=== PATIENT | female | born 1975 | race Two or more races ===

== ENCOUNTER 2025-06-05 17:10 | Inpatient (IN) | payer MEDICAID, OTHER ==
[~2025-06-05] VITALS: Ht 165.1 cm; Wt 115.0 kg
--- NOTE | 2025-06-05 17:26 | ED.PDOC ---
HPI Comments 50y F who presents to the ED via EMS for chief complaint of chest pain. Pt states she was smoking cigarette approx 20 minutes prior and states she started to have chest pain and called EMS. EMS upon arrival states her chest pain was by L side of chest, constant, sharp in nature, radiating to the L arm and L shoulder blade, with no associated exacerbating or relieving factors. EMS states pt was given 324 ASA and 0.4 nitro with no change in pain status. Pt upon being asked, states she was smoking due to she has been stressed due to family troubles with pt boyfriend kicking out pt and children and pt having to move in with sister. Pt otherwise has noted history of anxiety and panic attacks. Pt otherwise denies any other symptoms at this time. Chief Complaint: Chest Pain Time Seen by MD: 17:23 Reviewed Notes: Nurses Notes, Medications, Allergies Allergies: Coded Allergies: Penicillins (Verified Allergy, Intermediate, 06/05/25) Information Source: Patient Mode of Arrival: EMS Severity: Moderate Timing: Minutes Duration: Since onset Prehospital treatment: ASA, NTG Location: Chest (L) Radiation: Arm (L) Quality: Sharp, Pressure Onset: At Rest Cardiac Risk Factors: Smoker, HTN PE Risk Factors: None History of: Similar pain in past Modifying Factors: Nothing Associated Signs and Symptoms: None Past Medical History PAST MEDICAL HISTORY: Anxiety, COPD, HTN Past Medical History (Other): DJD Surgical History: Cholecystectomy, ASSISTANT MEDIA PLANNER History: Denies all ASSISTANT MEDIA PLANNER Hx Family History Family History: Reviewed,noncontributory to illness Social History Smoker: Cigarettes Alcohol: Denies ETOH Use Drugs: Marijuana Lives In: Home Constitutional: denies: chills, diaphoresis, fatigue, fever, malaise, sweats, weakness, others EENTM: denies: blurred vision, double vision, ear bleeding, ear discharge, ear drainage, ear pain, ear ringing, eye pain, eye redness, hearing loss, mouth pain, mouth swelling, nasal discharge, nose bleeding, nose congestion, nose pain, photophobia, tearing, throat pain, throat swelling, voice changes, others Respiratory: denies: cough, hemoptysis, orthopnea, SOB at rest, shortness of breath, SOB with excertion, stridor, wheezing, others Cardiovascular: reports: chest pain; denies: dizzy spells, diaphoresis, Dyspnea on exertion, edema, irregular heart beat, left arm pain, lightheadedness, palpitations, PND, syncope, others Gastrointestinal: denies: abdomen distended, abdominal pain, blood streaked bowels, constipated, diarrhea, dysphagia, difficulty swallowing, hematemesis, melena, nausea, poor appetite, poor fluid intake, rectal bleeding, rectal pain, vomiting, others Genitourinary: denies: abnormal vagina bleeding, burning, dyspareunia, dysuria, flank pain, frequency, hematuria, incontinence, pain, , vagina discharge, urgency, others Neurological: denies: dizziness, fainting, headache, left sided numbness, left sided weakness, numbness, paresthesia, pre-existing deficit, right sided numbness, right sided weakness, seizure, speech problems, tingling, tremors, weakness, others Musculoskeletal: denies: back pain, gout, joint pain, joint swelling, muscle pain, muscle stiffness, neck pain, others Integumetry: denies: bruises, change in color, change in hair/nails, dryness, laceration, lesions, lumps, rash, wounds, others Allergic/Immunocompromised: denies: Difficulty Healing, Frequent Infections, Hives, Itching, others Hematologic/Lymphatic: denies: anemia, blood clots, easy bleeding, easy bruising, swollen glands, others Endocrine: denies: excessive hunger, excessive sweating, excessive thirst, excessive urination, flushing, intolerance to cold, intolerance to heat, unexplained weight gain, unexplained weight loss, others Psychiatric: denies: anxiety, bipolar disorder, depression, hopeless, panic disorder, schizophrenia, sleepless, suicidal, others All Other Systems: Reviewed and Negative Physical Exam General Appearance: Moderate Distress, Obese HEENT: Normal ENT Inspection, Pharynx Normal, TMs Normal Neck: Full Range of Motion, Non-Tender, Normal, Normal Inspection Respiratory: Chest Non-Tender, Lungs Clear, No Accessory Muscle Use, No Respiratory Distress, Normal Breath Sounds Cardiovascular: No Edema, No JVD, No Murmur, No Gallop, Normal Peripheral Pulses, Regular Rate/Rhythm Breast Exam: Deferred Gastrointestinal: No Organomegaly, Non Tender, No Pulsatile Mass, Normal Bowel Sounds, Soft Genitalia: Deferred Pelvic: Deferred Rectal: Deferred Extremities: No calf tenderness, Normal capillary refill, Normal inspection, Normal range of motion, Non-tender, No pedal edema Musculoskeletal : Apperance: Normal Neurologic: Alert, burning supervisor II-XII nml as Tested, Motor Weakness, Normal Affect, Normal Mood, No Sensory Deficits Cerebellar Function: Normal Reflexes: Normal Skin: Dry, Normal Color, Warm Lymphatic: No Adenopathy EKG EKG : Pulse Rate (adult): 87 [place]: Normal Cardiac Rhythm: NSR Block: None Hypertrophy: None ST: Normal Was a procedure done? Was a procedure done?: No CP Differential Dx Differential Diagnosis: A-fib, A-Flutter, Angina, Anxiety / Panic Attack, Electrolyte Disorder, PVC's, Sinus Tachycardia Differential Diagnosis: HTN Essential, HTN Accelerated Differential Diagnosis: Chest Wall Pain, Costochondritis X-Ray, Labs, Meds, VS Vital Signs Date Time Temp Pulse Resp B/P (MAP) Pulse Ox O2 Delivery O2 Flow Rate FiO2 06/05/25 18:20 97.7 79 19 156/110 (125) 95 97.7 06/05/25 18:20 79 19 95 Room Air 06/05/25 17:26 87 06/05/25 17:15 87 06/05/25 17:11 98.2 82 24 167/90 98 98.2 Lab Test 06/05/25 18:25 06/05/25 17:25 06/05/25 17:16 Range/Units Troponin I High Sensitivity 4 4 </=34 ng/L White Blood Count 15.0 H 4.4-10.8 10^3/uL Red Blood Count 5.02 4.0-5.20 10^6/uL Hemoglobin 14.1 12.2-16.2 g/dL Hematocrit 41.7 36.0-46.0 % Mean Corpuscular Volume 83.2 80.0-100.0 fL Mean Corpuscular Hemoglobin 28.1 28.0-32.0 pg Mean Corpuscular Hemoglobin Concent 33.7 32.0-36.0 g/dL Red Cell Distribution Width 16.2 H 11.8-14.3 % Platelet Count 321 140-450 10^3/uL Mean Platelet Volume 9.3 6.9-10.8 fL Neutrophils (%) (Auto) 66.2 37.0-80.0 % Lymphocytes (%) (Auto) 25.0 10.0-50.0 % Monocytes (%) (Auto) 6.3 0.0-12.0 % Eosinophils (%) (Auto) 1.3 0.0-7.0 % Basophils (%) (Auto) 1.2 0.0-2.0 % Neutrophils # (Auto) 9.9 H 1.6-8.6 10 ^3/uL Lymphocytes # (Auto) 3.7 0.4-5.4 10 ^3/uL Monocytes # (Auto) 0.9 0-1.3 10 ^3/uL Eosinophils # (Auto) 0.2 0-0.8 10 ^3/uL Basophils # (Auto) 0.2 0-0.2 10 ^3/uL Nucleated Red Blood Cells 0.1 % Sodium Level 141 136-145 mmol/L Potassium Level 3.2 L 3.5-5.1 mmol/L Chloride Level 105 98-107 mmol/L Carbon Dioxide Level 26 20-31 mmol/L Anion Gap 10 5-15 Blood Urea Nitrogen 7 L 9-23 mg/dL Creatinine 0.77 0.550-1.02 mg/dL Glomerular Filtration Rate Calc 95 >90 mL/min BUN/Creatinine Ratio 9.1 L 10.0-20.0 Serum Glucose 107 H 74-106 mg/dL Calcium Level 9.9 8.7-10.4 mg/dL Urine Color Colorless Yellow Urine Clarity Clear Clear Urine pH 6.5 5.0-9.0 Urine Specific [place] 1.004 1.001-1.035 Urine Protein Negative Negative Urine Ketones Negative Negative Urine Blood Negative Negative /uL Urine Nitrite Negative Negative Urine Bilirubin Negative Negative Urine Urobilinogen Normal Negative mg/dL Urine Leukocyte Esterase Negative Negative /uL Urine RBC <1 0 - 4 /hpf Urine Microscopic WBC < 1 0-5 /HPF Urine Squamous Epithelial Cells Few <5 /hpf Urine Bacteria None seen None Seen /hpf Urine Glucose Normal Normal mg/dL Current Medications Medications (Trade) Dose Ordered Sig/Tanisha Route Start Time Stop Time Status Last Admin Lorazepam (Ativan Inj) 1 mg ONCE ONCE IV 06/05/25 17:30 06/05/25 17:54 DC 06/05/25 18:19 CHEST RADIOGRAPH IMPRESSION: Cardiomegaly with pulmonary vascular congestion and bilateral patchy airspace opacities. Small bilateral pleural effusions The patient is being given Lasix 40 mg IV push The patient was given Ativan 1 mg IV push for the anxiety The urine test is negative The patient's CBC shows an elevated white blood cell count of 15 The chemistry panel is within normal limits except for hypokalemia at 3.2 The patient is being given potassium both p.o. and IV The patient's blood pressure had remained somewhat elevated and consistent with accelerated hypertension Images Reviewed?: Images reviewed and evaluated by me Time of 1ST Reevaluation: 20:14 Reevaluation 1ST: Unchanged Patient Education/Counseling: Diagnosis, Treatment, Prognosis Family Education/Counseling: No Family Present SEPSIS Sepsis Screen Date sepsis recognized/suspect: Jun 05, 2025 Time Sepsis recognized/suspect: 1707 Recent Procedure: No On Antibiotic Therapy: No Respiratory Rate >20: Yes Heart Rate >90: No Temp<36 C (96.8 F) or >38.3 C: No SBP <90 or MAP <65 mmHG: No New Acute Mental Status Change: No Is the patient on CPAP, BIPAP,: No Physician Orders Chest Portable (06/05/25 17:16) Heplock Iv (06/05/25 17:16) Director Sales Training (06/05/25 17:16) Blood Pressure (06/05/25 17:16) Pulse Oximetry (06/05/25 17:16) Troponin-I Hs (06/05/25 20:16) Furosemide Injection (Lasix Injection) (06/05/25 20:15) Vital Signs Date Time Temp Pulse Resp B/P (MAP) Pulse Ox O2 Delivery O2 Flow Rate FiO2 06/05/25 18:20 97.7 79 19 156/110 (125) 95 97.7 06/05/25 18:20 79 19 95 Room Air 06/05/25 17:26 87 06/05/25 17:15 87 06/05/25 17:11 98.2 82 24 167/90 98 98.2 Laboratory Tests Test 06/05/25 17:25 White Blood Count 15.0 10^3/uL (4.4-10.8) H Medications Medications Dose Ordered Sig/Tanisha Route Start Time Stop Time Status Last Admin Dose Admin Lorazepam 1 mg ONCE ONCE IV 06/05/25 17:30 06/05/25 17:54 DC 06/05/25 18:19 Departure 1 Departure Time of Disposition: 20:13 Impression: Primary Impression: Acute coronary syndrome Additional Impressions: Acute diastolic heart failure Hypokalemia Disposition: ADMITTED INPATIENT Admit to: Tele Condition: Fair Critical Care Note Critical Care Time?: Yes (35 min-critical care time only) Stability Stability form required: Yes Unstable for transfer: Telemetry monitoring (Telemetry monitoring required), ED Physician Assesment (Clinical assesment) Heart Score Heart Score: Heart Score Response (Comments) Value History Slightly Suspicious 0 EKG Normal 0 Age 45-64 1 Risk Factors 1 or 2 risk factors 1 Troponin Normal limit 0 Total 2 I personally scribed for CARSON MOREL MD ([email or web address]) on 06/05/25 at 17:26. Electronically submitted by Giovanni Duckworth ([employer]). I personally scribed for CARSON MOREL MD ([email or web address]) on 06/05/25 at 18:45. Electronically submitted by Giovanni Duckworth ([employer]). I personally scribed for CARSON MOREL MD ([email or web address]) on 06/05/25 at 19:41. Electronically submitted by Giovanni Duckworth ([employer]). CARSON MOREL MD Jun 05, 2025 17:26
[2025-06-05 17:32] LABS: Hematocrit 41.7 % (36.0-46.0); Hemoglobin 14.1 g/dL (12.2-16.2); Mean Corpuscular Hemoglobin 28.1 pg (28.0-32.0); Mean Corpuscular Volume 83.2 fL (80.0-100.0); Nucleated Red Blood Cells % 0.1 %
[2025-06-05 17:52] LABS: Chloride 105 mmol/L (98-107); Sodium 141 mmol/L (136-145)
[2025-06-05 17:53] LABS: Anion Gap 10 (5-15); Calcium 9.9 mg/dL (8.7-10.4); Carbon Dioxide 26 mmol/L (20-31)
[2025-06-05 17:58] LABS: BUN/Creatinine Ratio 9.1 (10.0-20.0)
[2025-06-05] MEDS: LORazepam 2MG/ML-1ML VIAL IV ONE (18:19)
--- NOTE | 2025-06-05 18:35 | DVH ---
CHEST RADIOGRAPH Indication: cp Technique: XY CHEST PORTABLE COMPARISON: None FINDINGS: The cardiac silhouette is enlarged. The lungs demonstrate bilateral patchy airspace opacities. The pu lmonary vasculature is prominent. Small bilateral pleural effusions. There is no pneumothorax. IMPRESSION: Cardiomegaly with pulmonary vascular congestion and bilateral patchy airspace opacities. Small bilateral pleural effusions
[2025-06-05 18:39] LABS: Blood Urea Nitrogen 7 mg/dL (9-23); Glucose 107 mg/dL (74-106); Potassium 3.2 mmol/L (3.5-5.1)
--- NOTE | 2025-06-05 19:01 | ECG ---
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
[2025-06-05 19:02] LABS: Urine Protein, UAD Negative (Negative)
[2025-06-05] MEDS: POTASSIUM CHL 20 Meq TABLET PO ONE (20:46)
[2025-06-05] MEDS: FUROSEMIDE 40 MG/4 ML VIAL IV ONE (20:52)
[2025-06-05 21:01] VITALS: RESP 20; O2SAT 94
[2025-06-05] MEDS ORDERED: NITROGLYCERIN 0.4 MG SL TAB SL PRN (21:45)
[2025-06-05] MEDS ORDERED: ONDANSETRON HCL 4 MG/2 ML VIAL IV PRN (21:45)
[2025-06-05] MEDS: MORPHINE SULFATE INJ 2 MG/ml SYRG IV PRN (23:18)
--- NOTE | 2025-06-06 00:42 | DVHHPRES ---
History of Present Illness Resident Creating Document: ABDOULAYE MARISCAL RESIDENT History of Present Illness 50-year-old female presents the ER complaining of chest pain, rating 9/10, sharp in nature, gradual onset, radiating to back and between the shoulder blades, associated with palpitations and dizziness. The patient has a history of panic attack. She denies any fever, nausea, vomiting, diaphoresis or shortness of breath. Past medical history: Hypertension, COPD, spinal stenosis, degenerative disc disease, arthritis, panic attacks Past surgical history: D and C, 2 sections, cholecystectomy Home medications: Losartan, amlodipine, sertraline, beta-blockers, ibuprofen, Robaxin, albuterol inhaler, hydroxyzine, breathing treatments Allergies: Family history: Noncontributory Code status: Full code PCP: AMANDA Carcamo Review of Systems Cardiovascular: Chest Pain Neurological: Other Allergies: Coded Allergies: Penicillins (Verified Allergy, Intermediate, 06/05/25) Medications Current Medications Medications Dose Ordered Sig/Tanisha Route Start Time Stop Time Status Last Admin Dose Admin Ondansetron HCl 4 mg Q4HP PRN IV 06/05/25 21:45 Nitroglycerin 0.4 mg Q5MINP PRN SL 06/05/25 21:45 Morphine Sulfate 2 mg Q30M PRN IV 06/05/25 21:45 06/05/25 23:18 2 MG Exam Vital Signs Vital Signs Date Time Temp Pulse Resp B/P (MAP) Pulse Ox O2 Delivery O2 Flow Rate FiO2 06/05/25 23:18 64 19 158/92 06/05/25 23:14 98 06/05/25 21:01 Room Air* 0 21 06/05/25 18:20 97.7 97.7 Exam Pt is lying on bed General Appearance: Obesity, Alert, Oriented X3, Cooperative, Mild distress HEENT: Atraumatic, Mucous membranes moist/pink Respiratory: Clear to auscultation, Normal air movement, No added sounds, no chest wall tenderness noted Cardiovascular: Regular rate, Normal S1, Normal S2, No murmurs Abdominal/ : Active bowel sounds, Soft, no distention, no tenderness Extremities: No edema, Normal pulses, No tenderness/swelling Skin: No Significant rash, except past surgical scars Neuro: Normal speech, sensorimotor deficits none Psych/Mental Status: Mental status NL, Mood NL Nurse was there as clinical tech during examination Labs/Xrays Labs Test 06/05/25 18:25 06/05/25 17:25 06/05/25 17:16 Range/Units Troponin I High Sensitivity 4 </=34 ng/L White Blood Count 15.0 H 4.4-10.8 10^3/uL Red Blood Count 5.02 4.0-5.20 10^6/uL Hemoglobin 14.1 12.2-16.2 g/dL Hematocrit 41.7 36.0-46.0 % Mean Corpuscular Volume 83.2 80.0-100.0 fL Mean Corpuscular Hemoglobin 28.1 28.0-32.0 pg Mean Corpuscular Hemoglobin Concent 33.7 32.0-36.0 g/dL Red Cell Distribution Width 16.2 H 11.8-14.3 % Platelet Count 321 140-450 10^3/uL Mean Platelet Volume 9.3 6.9-10.8 fL Neutrophils (%) (Auto) 66.2 37.0-80.0 % Lymphocytes (%) (Auto) 25.0 10.0-50.0 % Monocytes (%) (Auto) 6.3 0.0-12.0 % Eosinophils (%) (Auto) 1.3 0.0-7.0 % Basophils (%) (Auto) 1.2 0.0-2.0 % Neutrophils # (Auto) 9.9 H 1.6-8.6 10 ^3/uL Lymphocytes # (Auto) 3.7 0.4-5.4 10 ^3/uL Monocytes # (Auto) 0.9 0-1.3 10 ^3/uL Eosinophils # (Auto) 0.2 0-0.8 10 ^3/uL Basophils # (Auto) 0.2 0-0.2 10 ^3/uL Nucleated Red Blood Cells 0.1 % Sodium Level 141 136-145 mmol/L Potassium Level 3.2 L 3.5-5.1 mmol/L Chloride Level 105 98-107 mmol/L Carbon Dioxide Level 26 20-31 mmol/L Anion Gap 10 5-15 Blood Urea Nitrogen 7 L 9-23 mg/dL Creatinine 0.77 0.550-1.02 mg/dL Glomerular Filtration Rate Calc 95 >90 mL/min BUN/Creatinine Ratio 9.1 L 10.0-20.0 Serum Glucose 107 H 74-106 mg/dL Calcium Level 9.9 8.7-10.4 mg/dL Urine Color Colorless Yellow Urine Clarity Clear Clear Urine pH 6.5 5.0-9.0 Urine Specific [place] 1.004 1.001-1.035 Urine Protein Negative Negative Urine Ketones Negative Negative Urine Blood Negative Negative /uL Urine Nitrite Negative Negative Urine Bilirubin Negative Negative Urine Urobilinogen Normal Negative mg/dL Urine Leukocyte Esterase Negative Negative /uL Urine RBC <1 0 - 4 /hpf Urine Microscopic WBC < 1 0-5 /HPF Urine Squamous Epithelial Cells Few <5 /hpf Urine Bacteria None seen None Seen /hpf Urine Glucose Normal Normal mg/dL SEPSIS Sepsis Screen Date sepsis recognized/suspect: Jun 05, 2025 Time Sepsis recognized/suspect: 1707 Recent Procedure: No On Antibiotic Therapy: No Respiratory Rate >20: Yes Heart Rate >90: No Temp<36 C (96.8 F) or >38.3 C: No SBP <90 or MAP <65 mmHG: No New Acute Mental Status Change: No Is the patient on CPAP, BIPAP,: No Physician Orders Chest Portable (06/05/25 17:16) Heplock Iv (06/05/25 17:16) Belting And Webbing Inspector (06/05/25 17:16) Blood Pressure (06/05/25 17:16) Pulse Oximetry (06/05/25 17:16) Admit (06/05/25 21:39) Allergies (06/05/25 21:39) Ondansetron Hcl (Zofran) (06/05/25 21:45) Complete Blood Count (06/06/25 04:00) Comprehensive Metabolic Panel (06/06/25 04:00) Cardiac Diet-2gna,Lofat,Lochol (06/06/25 Breakfast) Nitroglycerin Sublingual (Ntrostat Subli (06/05/25 21:45) Morphine Sulfate Injection (06/05/25 21:45) Oxygen By Nasal Cannula (06/05/25 21:39) Stat Ekg For Chest Pain (06/05/25 21:39) Notify Of Changes From Base (06/05/25 21:39) Ecdis N Navigation Operator For 24 Hours (06/05/25 21:39) Emergency Dysrhythmia Protocol (06/05/25 21:39) Rhythm Strips Once Every Shift (06/05/25 21:39) Vital Signs Date Time Temp Pulse Resp B/P (MAP) Pulse Ox O2 Delivery O2 Flow Rate FiO2 06/05/25 23:18 64 19 158/92 06/05/25 23:14 64 18 158/92 (114) 98 06/05/25 22:40 62 06/05/25 21:01 20 94 Room Air* 0 21 06/05/25 20:52 159/92 06/05/25 20:30 70 19 159/92 (114) 95 06/05/25 18:20 97.7 79 19 156/110 (125) 95 97.7 06/05/25 18:20 79 19 95 Room Air 06/05/25 17:26 87 06/05/25 17:15 87 06/05/25 17:11 98.2 82 24 167/90 98 98.2 Laboratory Tests Test 06/05/25 17:25 White Blood Count 15.0 10^3/uL (4.4-10.8) H Medications Medications Dose Ordered Sig/Tanisha Route Start Time Stop Time Status Last Admin Dose Admin Furosemide 40 mg ONCE ONCE IV 06/05/25 20:15 06/05/25 20:21 DC 06/05/25 20:52 40 MG Lorazepam 1 mg ONCE ONCE IV 06/05/25 17:30 06/05/25 17:54 DC 06/05/25 18:19 1 MG Morphine Sulfate 2 mg Q30M PRN IV 06/05/25 21:45 06/05/25 23:18 2 MG Potassium Chloride 20 meq ONCE ONCE PO 06/05/25 20:15 06/05/25 20:21 DC 06/05/25 20:46 20 MEQ Assessment/Plan Assessment/Plan Chest pain rule out ACS -EKG: No ischemic changes, old infarct -troponin x3: Negative -morphine -nitroglycerin Chest pain due to Gram-positive or Gram-negative pneumonia Chest x-ray: Cardiomegaly with pulmonary vascular congestion and bilateral patchy airspace opacities, small bilateral pleural effusions -ceftriaxone and azithromycin Hypertension Continue home meds losartan, amlodipine, beta blockers COPD not on exacerbation Breathing treatments if necessary Back pain due to spinal stenosis, degenerative disc disease, arthritis -[place] 5 mg p.r.n. GI prophylaxis: Not indicated DVT prophylaxis: Not indicated Diet: Cardiac Goals of care discussed with the patient for more than 27 minutes: Full code status Case discussed with , patient and RN Plan discussed with: Patient, Other (RN) My Orders Orders - ABDOULAYE MARISCAL RESIDENT Procedure Category Date Status Time Admit ADMIT 06/05/25 Transmitted 21:39 Allergies MELITA 06/05/25 In Process 21:39 Ondansetron Hcl PHA 06/05/25 In Process (Zofran) 21:45 Complete Blood Count LAB 06/06/25 Logged 04:00 Comprehensive LAB 06/06/25 Logged Metabolic Panel 04:00 Cardiac DIET 06/06/25 Transmitted Diet-2gna,Lofat,Lochol Breakfast Nitroglycerin PHA 06/05/25 In Process Sublingual (Ntrostat 21:45 Morphine Sulfate PHA 06/05/25 In Process Injection 21:45 Oxygen By Nasal RT 06/05/25 Transmitted Cannula 21:39 Stat Ekg For Chest [facility] 06/05/25 In Process Pain 21:39 Notify Md Of Changes [facility] 06/05/25 In Process From Base 21:39 Ecdis N Navigation Operator For [facility] 06/05/25 In Process 24 Hours 21:39 Emergency Dysrhythmia [facility] 06/05/25 In Process Protocol 21:39 Rhythm Strips Once [facility] 06/05/25 In Process Every Shift 21:39 Common Visit Codes: 68965-ECIFOAI INP/OBS CARE (HIGH) Secondary Visit Codes: 68322-[id number] CARE PLAN 30 MINUTES ABDOULAYE MARISCAL RESIDENT Jun 06, 2025 00:42
[2025-06-06] MEDS: cefTRIAXone 1GM/50ML D5W 50 ML IV ONE (02:28)
[2025-06-06 02:34] VITALS: BP 171/96; PULSE 64; RESP 18; TEMP 98.1; O2SAT 99
[2025-06-06] MEDS: HYDROcodone-ACET 5/325MG TAB PO PRN (02:38)
[2025-06-06] MEDS: AZITHROMYCIN 500MG/ 250ML 250 ML IV ONE (03:34)
[2025-06-06 05:00] VITALS: BP 163/103; PULSE 66; RESP 18; TEMP 98; O2SAT 95
[2025-06-06 05:47] LABS: Hematocrit 39.7 % (36.0-46.0); Hemoglobin 13.6 g/dL (12.2-16.2); Mean Corpuscular Hemoglobin 28.1 pg (28.0-32.0); Mean Corpuscular Volume 82.1 fL (80.0-100.0); Nucleated Red Blood Cells % 0.0 %
[2025-06-06 06:01] LABS: Alanine Aminotransferase 33 U/L (7-40); Anion Gap 11 (5-15); BUN/Creatinine Ratio 10.3 (10.0-20.0); Calcium 9.5 mg/dL (8.7-10.4); Carbon Dioxide 26 mmol/L (20-31); Chloride 103 mmol/L (98-107); Sodium 140 mmol/L (136-145); Total Protein 7.2 g/dL (5.7-8.2)
[2025-06-06 06:02] LABS: Albumin 4.6 g/dL (3.2-4.8); Bilirubin, Total 0.3 mg/dL (0.2-1.0)
[2025-06-06 06:15] LABS: Alkaline Phosphatase 123 U/L (46-116); Blood Urea Nitrogen 8 mg/dL (9-23); Glucose 166 mg/dL (74-106); Potassium 2.6 mmol/L (3.5-5.1)
[2025-06-06] MEDS ORDERED: IBU600T PO (06:46)
[2025-06-06] MEDS ORDERED: LOSA-534 PO (06:46)
[2025-06-06] MEDS ORDERED: ACLI400A5 IN (06:46)
[2025-06-06] MEDS ORDERED: METO25CA PO (06:46)
[2025-06-06] MEDS ORDERED: METH-1182 PO (06:46)
[2025-06-06] MEDS ORDERED: AML5T PO (06:46)
[2025-06-06] MEDS ORDERED: SERT100T PO (06:46)
[2025-06-06] MEDS: POTASSIUM CHL 20MEQ/100ML 100 ML IV ONE (07:24)
[2025-06-06 09:00] VITALS: BP 156/94; PULSE 66; RESP 17; TEMP 98.8; O2SAT 97
--- NOTE | 2025-06-06 09:09 | DVHPNRES ---
Progress Note Date Seen: Jun 06, 2025 Resident Creating Document: ELADIA BARRIOS RESIDENT Medical Necessity Reason Pt with a Central, PICC or Fol: No Subjective Review of Systems Arianna Del Real is a 50-year-old female with past medical history of COPD, hypertension, MVP, anxiety, PTSD, degenerative disc disease, depression, migraine, presented to the ER with chief complaint of chest pain. The pain started suddenly when she was smoking a cigarette, 10/10, sharp burning, urged do visit to ER. She reported that the pain aggravate and lifting head, lying on the left side, radiates to the back and shoulder blades. Associated with cough, productive phlegm. She also complained of difficulty breathing which worsened since yesterday. Reported no sick contacts, fever, chills, nausea, vomiting, abdominal pain, burning micturition. Vitals show high blood pressure and tachypnea on admission. Previous hospitalization: Dec 2024 [facility] for pain due to spinal stenosis Past medical history: COPD, hypertension, MVP, anxiety, PTSD, degenerative disc disease, depression, migraine Past surgical history: Cholecystectomy, 2 sections Social history: Smoker since the age of 15 years, 10 per day. Reported CBD gummy use, before start of chest pain. Nonalcoholic, no recreational drug use after high school. ROS: Constitutional: Denies weight loss, fever and chills. HEENT: Denies changes in vision and hearing. Respiratory: Difficulty breathing, chest pain and cough Cardiovascular: Chest pain. Denies palpitations GI: Denies abdominal pain, nausea, vomiting and diarrhea. : Denies dysuria and urinary frequency. Musculoskeletal: Pain in the shoulder blades, cervical spine and left thoracic area Skin: Skin tag on left side and back. Denies rash and pruritus. Neurological: Denies dizziness, headache, vision or hearing problems She was seen at bedside today. Continues to complain of excruciating pain in the chest, radiating to the back. She is in acute distress. Her vitals have stabilized now. Her labs show increased WBC count, ALP. Objective vital signs Vital Sign Date Time Temp Pulse Resp B/P (MAP) Pulse Ox O2 Delivery O2 Flow Rate FiO2 06/06/25 05:00 98.0 66 18 163/103 (123) 95 98.0 06/06/25 02:53 Room Air* 0 21 Total Intake and Output 7/31/25 7/31/25 8/1/25 15:00 23:00 07:00 Intake Total 650 ml Balance 650 ml medications Current Medications Medications Dose Ordered Sig/Tanisha Route Start Time Stop Time Status Last Admin Dose Admin Ondansetron HCl 4 mg Q4HP PRN IV 06/05/25 21:45 Nitroglycerin 0.4 mg Q5MINP PRN SL 06/05/25 21:45 Morphine Sulfate 2 mg Q30M PRN IV 06/05/25 21:45 06/05/25 23:18 2 MG Acetaminophen/ Hydrocodone Bitart 1 tab Q6HPRN PRN PO 06/06/25 01:00 06/06/25 02:38 1 TAB Ceftriaxone Sodium 50 ml @ 100 mls/hr DAILY@09 IV 06/07/25 09:00 Azithromycin 250 ml @ 125 mls/hr DAILY IV 06/07/25 10:00 Examination General: Patient alert and oriented in person, place and time. Patient following commands. In acute distress due to pain. HEENT: Bilateral draining sinuses in the neck. Hump back. Normocephalic, atraumatic, moist mucous membranes. Lhermitte sign negative Respiratory/pulmonary: Bilateral lung wheezes. Cardiovascular: Distant heart sounds. Abdomen: Abdomen nondistended, there is no pain to palpation in any of the abdominal quadrants, no palpable masses. Extremities: There is no peripheral edema present at the lower extremities. Peripheral Pulses: 3+ Radial (R). 3+ Radial (L). 3+ Dorsalis pedis (R). 3+ Dorsalis pedis(L) Skin: No rashes or pruritus, there is no sacral edema present at this time. Musculoskeletal: Tenderness in cervical spinal area, left upper thoracic region posteriorly Neurological: Intact cranial nerves with no focal neurologic deficits laboratory and microbiology Laboratory Tests 06/06/25 05:08 Test 06/06/25 05:08 Range/Units Serum Glucose 166 H 74-106 mg/dL Labs and/or images reviewed: Labs reviewed by me, Image(s) reviewed by me Problem List/Assessment/Plan Problem List/Assessment/Plan Acute exacerbation of COPD, due to pneumonia, Gram-negative Gram-positive, possible Sepsis with leukocytosis due to pneumonia CXR revealed enlarged cardiac silhouette with pulmonary vascular congestion and bilateral patchy airspace opacities and small bilateral pleural effusions Influenza and COVID-19 ordered Started on azithromycin and ceftriaxone IV Acute chest pain, rule out ACS Started on telemetry. Pain management with morphine, NTG, Rena Lara Troponin WNL Hypokalemia IV potassium supplementation administered Continue monitoring and managing Elevated liver enzymes Elevated ALT and AST Essential hypertension Continue home medication, amlodipine 5 mg daily ?History of depression History of anxiety disorder No suicidal ideation/plan History of Lumbar spinal stenosis Continue pain management Morbid obesity with BMI 42.2 Advised lifestyle modification. Tobacco use disorder Counseled on smoking cessation for 16 minutes DIET: Cardiac DVT PROPHYLAXIS: Lovenox GI PROPHYLAXIS: Protonix CODE STATUS: Goals of care discussed with patient at bedside for20 minutes. Full code DISPOSITION: Med/surge Patient's status and plan discussed with the patient. Case discussed with Dr. Alex. PCP Aleta Carcamo Plan discussed with: Patient, Other (Nurse) Addendum Addendum Addendum I was physically present for the simpson portions of the service provided to patient by THE RESIDENT. I have reviewed the documentation, discussed the case with resident and agree with the resident's documentation except as noted. Also the patient's clinical case was discussed with the patient's nurse. This medical document was created using an electronic medical record system with computerized dictation system. Although this document has been carefully reviewed, there might still be some phonetic and typographical errors. These areas are purely typographical due to imperfections of the software programs, and do not reflect any compromise in the patient's medical care. Late signature. Date of Service: Jun 06, 2025 Billing Provider: CRISSY ALEX MD Common Visit Codes: 88976-[id number] INP/OBS CARE(HIGH) Secondary Visit Codes: 42261-IFSMH CHNG SMOKING >10MIN (16 minutes), 07506- ADVANCED CARE PLAN 30 MINUTES (20 minutes) ELADIA BARRIOS RESIDENT Jun 06, 2025 09:09 CRISSY ALEX MD Jun 08, 2025 04:38
[2025-06-06] MEDS: PANTOPRAZOLE 40 MG/10 ML VIAL INJ IV ONE (10:15)
[2025-06-06] MEDS ORDERED: HYDRX10T PO (10:35)
[2025-06-06] MEDS ORDERED: SERT-160 PO (10:35)
[2025-06-06] MEDS: LIDOCAINE 5% TOPICAL PATCH TOP ONE (10:41)
[2025-06-06] MEDS: MORPHINE SULFATE INJ 2 MG/ml SYRG IV ONE (10:45)
[2025-06-06] MEDS: POTASSIUM CHLORIDE 40 MEQ, LIDOCAINE 1% (LOCAL ANESTH.) 4 ML in SODIUM CHL 0.9% 250 ML IV ONE (10:46)
[2025-06-06] MEDS ORDERED: SUCRALFATE 1 GM/10 ML ORAL SUSP GT ONE (12:00)
[2025-06-06] MEDS ORDERED: KETOROLAC TROMETH 30 MG/ML 1ML VIAL IV ONE (12:30)
[2025-06-06] MEDS ORDERED: SERTRALINE HCL 50 MG TAB PO ONE (12:45)
[2025-06-06 13:00] VITALS: BP 164/102; PULSE 62; RESP 17; TEMP 98.6; O2SAT 97
[2025-06-06] MEDS ORDERED: IPRATROPIUM BROM 0.5 MG/2.5ML INH SOL NEB SCH ×2 (13:00→18:00)
[2025-06-06] MEDS ORDERED: ALBUTEROL SULF 2.5 MG/0.5ML(0.5%) NEB SOLN NEB SCH ×2 (13:00→18:00)
[2025-06-06 13:52] VITALS: BP 159/94; PULSE 65; RESP 18; TEMP 98; O2SAT 95
[2025-06-06 14:01] LABS: Triglycerides 141 mg/dL (< 150)
[2025-06-06 14:03] LABS: HDL Cholesterol 46 mg/dL (40-59)
[2025-06-06 14:04] LABS: Cholesterol 205 mg/dL (< 200)
[2025-06-06 14:06] LABS: Amphetamine Screen, Urine Neg (NEGATIVE)
[2025-06-06 14:07] LABS: Barbiturate Scree,Urine Neg (NEGATIVE); Benzodiazephine Screen, Urine Neg (NEGATIVE); Cannabinoid Screen, Urine Pos (NEGATIVE); Cocaine Screen, Urine Neg (NEGATIVE); Opiate Scree,Urine Neg (NEGATIVE)
[2025-06-06 14:08] LABS: Phencyclidine Screen, Urine Neg (NEGATIVE)
[2025-06-06 15:08] LABS: COVID19 ANTIGEN SOFIA FIA NEGATIVE (NEGATIVE)
--- NOTE | 2025-06-06 15:17 | DVHDSRES ---
Discharge Summary Date of Admission Resident Creating Document: ELADIA BARRIOS RESIDENT Jun 05, 2025 at 21:39 Date of Discharge: Jun 06, 2025 Admitting Diagnosis Acute exacerbation of COPD, due to pneumonia, Gram-negative Gram-positive, possible Wounds: No large wounds Labs/Diagnostic Data: Laboratory Results Test 06/06/25 11:30 06/06/25 05:09 06/06/25 05:08 06/05/25 18:25 Influenza Type A Antigen Negative (Negative) Influenza Type B Antigen Negative (Negative) SARS-CoV-2 Antigen (Rapid) Negative (NEGATIVE) Erythrocyte Sedimentation Rate 28 mm/hr (0-20) C-Reactive Protein High Sensitivity 2.26 mg/dL (<1.0) Triglycerides Level 141 mg/dL (< 150) Cholesterol Level 205 mg/dL (< 200) LDL Cholesterol 152 mg/dL (< 100) HDL Cholesterol 46 mg/dL (40-59) Thyroid Stimulating Hormone (TSH) 1.87 uIU/mL (0.55-4.78) Beta HCG, Quantitative 1.5 mIU/mL (1.5-4.2) Plasma/Serum Blood Alcohol < 3.0 mg/dL (<10) White Blood Count 12.3 10^3/uL (4.4-10.8) Red Blood Count 4.84 10^6/uL (4.0-5.20) Hemoglobin 13.6 g/dL (12.2-16.2) Hematocrit 39.7 % (36.0-46.0) Mean Corpuscular Volume 82.1 fL (80.0-100.0) Mean Corpuscular Hemoglobin 28.1 pg (28.0-32.0) Mean Corpuscular Hemoglobin Concent 34.2 g/dL (32.0-36.0) Red Cell Distribution Width 15.8 % (11.8-14.3) Platelet Count 310 10^3/uL (140-450) Mean Platelet Volume 9.6 fL (6.9-10.8) Neutrophils (%) (Auto) 72.2 % (37.0-80.0) Lymphocytes (%) (Auto) 21.0 % (10.0-50.0) Monocytes (%) (Auto) 4.5 % (0.0-12.0) Eosinophils (%) (Auto) 1.9 % (0.0-7.0) Basophils (%) (Auto) 0.4 % (0.0-2.0) Neutrophils # (Auto) 8.9 10 ^3/uL (1.6-8.6) Lymphocytes # (Auto) 2.6 10 ^3/uL (0.4-5.4) Monocytes # (Auto) 0.5 10 ^3/uL (0-1.3) Eosinophils # (Auto) 0.2 10 ^3/uL (0-0.8) Basophils # (Auto) 0.1 10 ^3/uL (0-0.2) Nucleated Red Blood Cells 0.0 % Sodium Level 140 mmol/L (136-145) Potassium Level 2.6 mmol/L (3.5-5.1) Chloride Level 103 mmol/L (98-107) Carbon Dioxide Level 26 mmol/L (20-31) Anion Gap 11 (5-15) Blood Urea Nitrogen 8 mg/dL (9-23) Creatinine 0.78 mg/dL (0.550-1.02) Glomerular Filtration Rate Calc 94 mL/min (>90) BUN/Creatinine Ratio 10.3 (10.0-20.0) Serum Glucose 166 mg/dL (74-106) Hemoglobin A1c 5.8 % A1C (<5.7) Calcium Level 9.5 mg/dL (8.7-10.4) Total Bilirubin 0.3 mg/dL (0.2-1.0) Aspartate Amino Transferase (AST) 48 U/L (13-40) Alanine Aminotransferase (ALT) 33 U/L (7-40) Alkaline Phosphatase 123 U/L (46-116) Total Protein 7.2 g/dL (5.7-8.2) Albumin 4.6 g/dL (3.2-4.8) Troponin I High Sensitivity 4 ng/L (</=34) Test 06/05/25 17:16 Urine Color Colorless (Yellow) Urine Clarity Clear (Clear) Urine pH 6.5 (5.0-9.0) Urine Specific [place] 1.004 (1.001-1.035) Urine Protein Negative (Negative) Urine Ketones Negative (Negative) Urine Blood Negative /uL (Negative) Urine Nitrite Negative (Negative) Urine Bilirubin Negative (Negative) Urine Urobilinogen Normal mg/dL (Negative) Urine Leukocyte Esterase Negative /uL (Negative) Urine RBC <1 /hpf (0 - 4) Urine Microscopic WBC < 1 /HPF (0-5) Urine Squamous Epithelial Cells Few /hpf (<5) Urine Bacteria None seen /hpf (None Seen) Urine Glucose Normal mg/dL (Normal) Urine Opiates Screen Neg (NEGATIVE) Urine Fentanyl Screen Neg (NEGATIVE) Urine Barbiturates Screen Neg (NEGATIVE) Urine Phencyclidine Screen Neg (NEGATIVE) Urine Amphetamines Screen Neg (NEGATIVE) Urine Benzodiazepines Screen Neg (NEGATIVE) Urine Cocaine Screen Neg (NEGATIVE) Urine Cannabinoids Screen Pos (NEGATIVE) Other Laboratory Tests 06/06/25 05:08 Brief Hx & Hospital Course: Brief history: Arianna Del Real is a 50-year-old female with past medical history of COPD, hypertension, MVP, anxiety, PTSD, degenerative disc disease, depression, migraine, presented to the ER with chief complaint of chest pain. The pain started suddenly when she was smoking a cigarette, 10/10, sharp burning, urged do visit to ER. She reported that the pain aggravate and lifting head, lying on the left side, radiates to the back and shoulder blades. Associated with cough, productive phlegm. She also complained of difficulty breathing which worsened since yesterday. Reported no sick contacts, fever, chills, nausea, vomiting, abdominal pain, burning micturition. She reports smoking since the age of 15 years, 10 per day. Reported CBD gummy use, before start of chest pain. Nonalcoholic, no recreational drug use after high school. Hospital course: Initial labs show troponin levels WNL, leukocytosis, increased ALP, cholesterol and LDL, ESR and CRP. Toxicology positive for cannabinoids, alcohol. Started on telemetry, pain management. CXR revealed enlarged cardiac silhouette with pulmonary vascular congestion and bilateral patchy airspace opacities and small bilateral pleural effusions, started on IV azithromycin and ceftriaxone. Patient went AMA before further medical evaluation or management could be completed. Physical exam as documented in the progress note on 06/06/2025. Discharge diagnosis: Acute exacerbation of COPD, due to pneumonia, Gram-negative Gram-positive, possible Pneumonia, likely due to Gram-positive Gram-negative bacteria/viral Sepsis with leukocytosis due to pneumonia Acute chest pain, possible cardiac, possible ACS Hypokalemia Elevated liver enzymes Elevated ALT and AST Essential hypertension History of depression History of anxiety disorder History of Lumbar spinal stenosis Morbid obesity with BMI 42.2 Tobacco use disorder Discussed with Dr. Alex Operations or Procedures CHEST RADIOGRAPH Indication: cp Technique: XY CHEST PORTABLE COMPARISON: None FINDINGS: The cardiac silhouette is enlarged. The lungs demonstrate bilateral patchy airspace opacities. The pulmonary vasculature is prominent. Small bilateral pleural effusions. There is no pneumothorax. IMPRESSION: Cardiomegaly with pulmonary vascular congestion and bilateral patchy airspace opacities. Small bilateral pleural effusions Condition at Discharge: Undetermined (Left AMA) Final Diagnosis/Problems List Acute exacerbation of COPD, due to pneumonia, Gram-negative Gram-positive, possible Sepsis with leukocytosis due to pneumonia Acute chest pain, rule out ACS Hypokalemia Elevated liver enzymes Elevated ALT and AST Essential hypertension History of depression History of anxiety disorder History of Lumbar spinal stenosis Morbid obesity with BMI 42.2 Tobacco use disorder Discharge Disposition: AMA Discharge Instruct/Medications Diet: See Comment Diet comment: Left AMA Activity: See Comment Activity comment: Left AMA Follow Up/Referral: Left AMA Medications: Left AMA Scheduled Amlodipine Besylate (Norvasc Tablet), 1 TAB PO DAILY, (Reported) Losartan Potassium (Losartan Potassium), 1 TAB PO DAILY, (Reported) Sertraline Hcl (Zoloft), 1 TAB PO DAILY, (Reported) Sertraline Hcl (Sertraline Hcl), 1 TAB PO BID, (Reported) Scheduled PRN Ibuprofen Micronized (Motrin Tablet), 600 MG PO TID PRN for PAIN SCALE 1 THRU 6, (Reported) Miscellaneous Medications Aclidinium Chamberino (Tudorza Pressair), 400 MCG IN, (Reported) Hydroxyzine Hcl (Hydroxyzine Hcl), 1 TAB PO, (Reported) Methocarbamol (Methocarbamol), 750 MG PO, (Reported) Metoprolol Succinate (Kapspargo Sprinkle), 25 MG PO, (Reported) Discharge Statement: "Patient was advised to return to the ER or call 911 if any headaches, dizziness, shortness of breath, chest pain, abdominal pain, bleeding, fevers, or worsening of medical condition. Patient was counseled about treatment plan, medications, possible side effects, patientverbalized understanding. All questions were answered to the best of my ability. This discharge took greater then 30 minutes in planning, reviewing documentation, counseling the patient, and discussing with other team members." ASSESSMENT ASSESSMENT Assessment Addendum Addendum Addendum I was physically present for the simpson portions of the service provided to patient by THE RESIDENT. I have reviewed the documentation, discussed the case with resident and agree with the resident's documentation except as noted. Also the patient's clinical case was discussed with the patient's nurse. This medical document was created using an electronic medical record system with computerized dictation system. Although this document has been carefully reviewed, there might still be some phonetic and typographical errors. These areas are purely typographical due to imperfections of the software programs, and do not reflect any compromise in the patient's medical care. Late signature. Date of Service: Jun 06, 2025 Billing Provider: CRISSY ALEX MD Common Visit Codes: 47678-ZFV/OBS DISCH DAY >30min ELADIA BARRIOS RESIDENT Jun 06, 2025 15:17 DILIA ZARATE RESDIENT Jun 06, 2025 17:27 CRISSY ALEX MD Jun 08, 2025 04:42
[2025-06-06] MEDS ORDERED: SUCRALFATE 1 GM/10 ML ORAL SUSP GT SCH (22:00)
[2025-06-07] MEDS ORDERED: cefTRIAXone 1GM/50ML D5W 50 ML IV SCH (09:00)
[2025-06-07] MEDS ORDERED: SERTRALINE HCL 50 MG TAB PO SCH (10:00)
[2025-06-07] MEDS ORDERED: PANTOPRAZOLE 40 MG/10 ML VIAL INJ IV SCH (10:00)
[2025-06-07] MEDS ORDERED: AZITHROMYCIN 500MG/ 250ML 250 ML IV SCH (10:00)
[2025-06-07] MEDS ORDERED: LIDOCAINE 5% TOPICAL PATCH TOP SCH (10:00)
--- NOTE | 2025-06-07 15:09 | DVHSR ---
APPROVED REPORT EXAM: Two-dimensional and M-mode echocardiogram with Doppler and color Doppler. INDICATION Chest Pain RISK FACTORS Height: 5'5", Weight: 253 DIMENSIONS LVDd5.0 (3.8-5.7cm)LA (2D)4.2 (1.9-4.0cm)Aortic Root (2.0-3.7cm) LVDs3.2 (2.5-4.0cm)LA (MM) (1.9-4.0cm)Aortic Cusp Exc (1.5-2.0cm) EF (%) 65.0 (55-70%)Rt. Atrium4.3 (1.9-4.0cm)Asc. Aorta cm Mitral Valve MitralMitral Stenosis E/A ratio0.02D MVAcm2 Aortic Valve Aortic ValveAortic Stenosis V11.37m/Josefa Mean GR.6mmHg V21.66m/Josefa Peak GR.11mmHg LVOT Diameter2.0 (1.8-2.4cm)Doppler AVA2.59cm2 Tricuspid Valve TR Velocity2.38m/s [id number] Conclusion NORMAL LV EF AND IS 65% GROSSLY NORMAL VALVES NO EFFUSION NORMAL RV FUNCTION AND SIZE
== END 2025-06-06 14:11 | disposition left against medical advice (07) | DRG 720 ==
LOC: EDBD 17:10 → ER 17:10 → OVERFLOW 21:39 → TELE-EAST 21:41
PROVIDERS: ADMIT Internal Medicine; ATTEND Emergency Medicine
DX: A41.59 Other Gram-negative sepsis (principal); I50.31 Acute diastolic (congestive) heart failure; J15.69 Pneumonia due to other Gram-negative bacteria; J90 Pleural effusion, not elsewhere classified; J15.9 Unspecified bacterial pneumonia; I11.0 Hypertensive heart disease with heart failure; J44.0 Chronic obstructive pulmonary disease with (acute) lower respiratory infection; J44.1 Chronic obstructive pulmonary disease with (acute) exacerbation; E66.01 Morbid (severe) obesity due to excess calories; Z68.41 Body mass index [BMI] 40.0-44.9, adult; Z20.822 Contact with and (suspected) exposure to COVID-19; F41.9 Anxiety disorder, unspecified; F17.210 Nicotine dependence, cigarettes, uncomplicated; E87.6 Hypokalemia; Z53.29 Procedure and treatment not carried out because of patient's decision for other reasons; R74.8 Abnormal levels of other serum enzymes; M48.061 Spinal stenosis, lumbar region without neurogenic claudication; Z88.0 Allergy status to penicillin; Z71.6 Tobacco abuse counseling; Z90.49 Acquired absence of other specified parts of digestive tract
CPT/HCPCS: 36415; 71045; 80048; 80053; 80061; 80307; 80320; 81001; 83036; 84443; 84484; 84702; 85025; 85652; 86141; 87426; 87804; 93005; 93306; 96374; 99291; G0378; J2003; J2470; J3480